=== PATIENT | male | born 1960 | race Caucasian/White ===

== ENCOUNTER → 2020-12-05 | Outpatient (CLI) | payer OTHER ==
[~2020-12-05] MED LIST: COZAAR100 MG PO; ECOTRIN81 MG PO; NORVASC10 MG PO; PROVENTIL HFA6.7 GM INH; SINGULAIR10 MG PO; ZANTAC150 MG PO
== END ==
LOC: KOH-I 16:04
DX: M25.561 Pain in right knee (principal)
CPT/HCPCS: 73562

== ENCOUNTER → 2020-12-16 | Outpatient (CLI) | payer OTHER | LOC: KOH-I 09:36 | DX: M25.561 Pain in right knee (principal); R53.1 Weakness; Z18.10 Retained metal fragments, unspecified; R93.6 Abnormal findings on diagnostic imaging of limbs; M71.21 Synovial cyst of popliteal space [Baker], right knee; M94.9 Disorder of cartilage, unspecified | CPT/HCPCS: 70200; 73721 ==

== ENCOUNTER → 2022-03-15 | Outpatient (CLI) | payer SELFPAY | LOC: EROP 15:38 | DX: U07.1 COVID-19 (principal); Z23 Encounter for immunization | CPT/HCPCS: M0222; Q0222 ==